=== PATIENT | male | born 1945 ===

== ENCOUNTER 2019-01-06 09:27 | Day surgery (SDC) | payer MEDICARE ==
[2018-12-30 13:06] VITALS: BMI 43.1
[2019-01-06 10:01] VITALS: RESP 20; O2SAT 94
[2019-01-06 10:21] LABS: BASO # 0.01 K/mm3 (0.0-2.0); BASO % 0.1 % (0.0-3.0); EOS # 0.3 (0.0-0.7); EOS % 4.3 % (1.5-5.0); HEMOGLOBIN 11.9 g/dL (14.0-18.0); LYMPH # 2.5 (1.2-3.4); MEAN CELL VOLUME 91.9 fl (80.0-105.0); MEAN CORPUSCULAR HEMOGLOBIN 28.4 pg (25.0-35.0); MEAN CORPUSCULAR HGB CONC 30.9 g/dl (31.0-37.0); MEAN PLATELET VOLUME 10.6 fl (7.0-11.0); MONO # 0.5 (0.1-0.6); RBC 4.19 10^6/uL (3.5-6.1); RED CELL DISTRIBUTION WIDTH 14.6 % (11.5-14.5); WHITE BLOOD COUNT 6.7 10^3/uL (4.5-11.0)
[2019-01-06 10:25] LABS: INR 1.04; PARTIAL THROMBOPLASTIN TIME 32.4 Seconds (26.9-38.3); PROTHROMBIN TIME 11.8 SECONDS (9.4-12.5)
[2019-01-06 10:27] LABS: BLOOD UREA NITROGEN 16 mg/dL (7-21); CALCIUM 8.8 mg/dL (8.4-10.5); GFR NON-AFRICAN AMERICAN > 60; HDL CHOLESTEROL 37 mg/dL (29-60)
[2019-01-06 10:38] LABS: LDL CHOLESTEROL 70 mg/dL (0-129)
[2019-01-06] MEDS ORDERED: Lidocaine PF 2% (5 ml) Inj (For Cardiac Arrhy) ONE (11:07)
[2019-01-06] MEDS ORDERED: Verapamil 2 ML ONE (11:08)
[2019-01-06] MEDS ORDERED: Iodixanol 320 MG/ML 200 ML BOTTLE IV ONE (11:08)
[2019-01-06] MEDS ORDERED: Nitroglycerin 50mg in D5W 50 MG/250 ML BOTTLE IV ONE (11:08)
[2019-01-06] MEDS ORDERED: Midazolam 2 MG/2 ML VIAL ONE ×2 (11:29→12:01)
[2019-01-06] MEDS ORDERED: Bacitracin 500 Units/gm Oint Foilpak UD TOP ONE (12:28)
[2019-01-06] MEDS ORDERED: Sodium Chloride 0.9% 1,000 ML IV SCH (12:30)
[2019-01-06 12:59] VITALS: TEMP 98
--- NOTE | 2019-01-06 13:06 | CARD ---
APPROVED REPORT Date of service: 01/06/2019 EKG Measurement Heart [id number] CA [id number]-14 [id number] <Conclusion> Normal sinus rhythm Incomplete right bundle branch block
[2019-01-06 14:25] VITALS: BP 106/63; PULSE 57
--- NOTE | 2019-01-06 14:45 | CARDCATH ---
PROCEDURE DATE: 01/06/2019 INDICATIONS: Mr. Quiroz is a 73-year-old male with past medical history significant for CAD, status post stenting of RCA who recently underwent a nuclear stress test for preoperative cardiovascular risk stratification prior to knee replacement n surgery which was noted to have abnormal nuclear findings LAD and RCA, and therefore was brought to the geoscience laboratory technician for further evaluation and treatment. PROCEDURE PERFORMED: Left heart catheterization with selective left and right coronary angiogram via left radial arterial approach, 6-[place] left radial arterial access, wrist band for hemostasis. ANGIOGRAPHIC FINDINGS: Left main is a large-sized vessel, bifurcates into left anterior descending and left circumflex coronary artery. Left main is free of any obstructive disease. LAD is a large-sized vessel, it gives off 2 medium sized diagonal branches free of any obstructive disease. LAD has proximal calcific nonobstructive 40% stenosis. Left circumflex runs in the AV groove, gives off two small size obtuse marginal branches, free of any obstructive disease. 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 Left ventricular end-diastolic pressure was 19 mmHg, ejection fraction was 55%. IMPRESSION: Patent right coronary artery stent, nonobstructive coronary artery disease, normal ejection fraction, normal pressure. RECOMMENDATIONS: Continue aggressive medical management and risk factor modification. The patient can proceed with planned knee replacement with low risk for perioperative cardiac events. Toi Cosme MD
== END 2019-01-06 16:15 | disposition home or self-care (01) ==
LOC: CATH 09:27
PROVIDERS: ATTEND Internal Medicine Interventional Cardiology
DX: I25.10 Atherosclerotic heart disease of native coronary artery without angina pectoris (principal); I10 Essential (primary) hypertension; E11.9 Type 2 diabetes mellitus without complications; Z79.84 Long term (current) use of oral hypoglycemic drugs; Z95.5 Presence of coronary angioplasty implant and graft
CPT/HCPCS: 36415; 80048; 80061; 85025; 85610; 85730; 86850; 86900; 93005; 93458; 99152; 99153; C1769; C1887; C1894; J1644 ×2; J2250; J3010; J7030; J7040; Q9966